=== PATIENT | male | born 1995 | race American Indian/Alaskan Native ===

== ENCOUNTER 2019-08-26 00:42 | Emergency (ER) | payer SELFPAY ==
[2019-08-26 00:59] VITALS: BP 125/79
[2019-08-26] MEDS ORDERED: dexAMETHasone 20 MG/5 ML VIAL IV ONE (01:08)
[2019-08-26] MEDS ORDERED: diphenhydrAMINE 50 MG/ML VIAL IV ONE (01:08)
[2019-08-26] MEDS ORDERED: FAMOTIDINE 20 MG TAB PO ONE (01:08)
--- NOTE | 2019-08-26 01:13 | Emergency Department Report ---
ED Allergic Reaction HPI - General Chief complaint: Allergic Reaction Stated complaint: INSECT BITE/ALLERGIC REACTION Source: patient Mode of arrival: Ambulatory Limitations: No Limitations - History of Present Illness Initial Comments: Patient is a 23-year-old -[place] male with no past medical history except for allergies to bee stings who presents to the ED with complaint of acute onset painful itchy erythematous urticarial posterior neck rash after being bitten by an insect which he suspects may have been a bee about 2 hours ago at work. Patient's chest that he was at work when a bee bit him on the posterior neck and he started feeling pain, itching and burning sensation with mild sweating. Patient denies swollen lips, swollen tongue, swollen throat, dysphagia, dysphonia, swollen face, cough, wheezing, dizziness, syncope, shortness of breath, abdominal pain, nausea, vomiting, diarrhea, fever or chills. MD Complaint: allergic reaction, hives -: Sudden, hour(s) (2) Exposure: insect bite Symptoms: rash, itching, other (erythematous rash on posterior neck, the site of insect bite). denies: facial swelling, lip swelling, difficulty swallowing, difficulty breathing, orolingual swelling, hoarseness, syncopy, dizziness, nausea, vomiting Severity: moderate Treatment Prior to Arrival: none Previous Allergy History: none - Related Data Previous Rx's Medication Instructions Recorded Last Taken Type Famotidine [Pepcid] 20 mg PO Q12H #30 tablet 08/26/19 Unknown Rx Prednisone [predniSONE 10 mg 10 mg PO .TAPER #21 tab.ds.pk 08/26/19 Unknown Rx (6-Day Pack, 21 Tabs)] diphenhydrAMINE [Benadryl CAP] 25 mg PO Q6HR PRN #30 capsule 08/26/19 Unknown Rx Allergies Allergy/AdvReac Type Severity Reaction Status Date / Time bee venom protein (honey bee) Allergy Anaphylaxis Verified 08/26/19 00:58 venom-wasp Allergy Anaphylaxis Verified 08/26/19 00:58 ants Allergy Anaphylaxis Uncoded 08/26/19 00:58 ED Review of Systems ROS: Stated complaint: INSECT BITE/ALLERGIC REACTION Other details as noted in HPI Constitutional: denies: chills, fever Eyes: denies: eye pain, eye discharge, vision change ENT: denies: ear pain, throat pain Respiratory: denies: cough, shortness of breath, wheezing Cardiovascular: denies: chest pain, palpitations Endocrine: no symptoms reported Gastrointestinal: denies: abdominal pain, nausea, diarrhea Genitourinary: denies: urgency, dysuria Musculoskeletal: denies: back pain, joint swelling, arthralgia Skin: rash (Erythematous itchy maculopapular urticarial rash on posterior neck). denies: lesions Neurological: denies: headache, weakness, paresthesias Psychiatric: denies: anxiety, depression Hematological/Lymphatic: denies: easy bleeding, easy bruising ED Past Medical Hx - Past Medical History Previous Medical History?: No - Surgical History Past Surgical History?: No - Social History Smoking Status: Never Smoker Substance Use Type: None - Medications Home Medications: Home Medications Medication Instructions Recorded Confirmed Last Taken Type Famotidine [Pepcid] 20 mg PO Q12H #30 tablet 08/26/19 Unknown Rx Prednisone [predniSONE 10 mg 10 mg PO .TAPER #21 tab.ds.pk 08/26/19 Unknown Rx (6-Day Pack, 21 Tabs)] diphenhydrAMINE [Benadryl CAP] 25 mg PO Q6HR PRN #30 capsule 08/26/19 Unknown Rx ED Physical Exam - General Limitations: No Limitations General appearance: alert, in no apparent distress - Head Head exam: Present: atraumatic, normocephalic, normal inspection - Eye Eye exam: Present: normal appearance, PERRL, EOMI Pupils: Present: normal accommodation - ENT ENT exam: Present: normal exam, normal orophraynx, mucous membranes moist, TM's normal bilaterally, normal external ear exam - Neck Neck exam: Present: normal inspection, full ROM. Absent: tenderness - Respiratory Respiratory exam: Present: normal lung sounds bilaterally. Absent: respiratory distress, wheezes, rales, rhonchi, stridor, chest wall tenderness, accessory muscle use, decreased breath sounds - Cardiovascular Cardiovascular Exam: Present: regular rate, normal rhythm, normal heart sounds. Absent: systolic murmur, diastolic murmur, rubs, gallop - GI/Abdominal GI/Abdominal exam: Present: soft, normal bowel sounds. Absent: tenderness, guarding, hyperactive bowel sounds, hypoactive bowel sounds, organomegaly - Extremities Exam Extremities exam: Present: normal inspection, full ROM, normal capillary refill - Back Exam Back exam: Present: normal inspection, full ROM. Absent: tenderness, CVA tenderness (R), CVA tenderness (L), muscle spasm, paraspinal tenderness, vertebral tenderness - Neurological Exam Neurological exam: Present: alert, oriented X3, CN II-XII intact, normal gait, reflexes normal - Psychiatric Psychiatric exam: Present: normal affect, normal mood - Skin Skin exam: Present: warm, dry, intact, normal color, rash (Erythematous maculopapular urticarial rash on posterior neck from an insect bite), erythema, urticaria ED Course Vital Signs 08/26/19 00:57 Temperature 98.7 F Pulse Rate 88 Respiratory 20 Rate Blood Pressure 125/79 O2 Sat by Pulse 98 Oximetry ED Medical Decision Making - Medical Decision Making This is a 23-year-old -[place] male with no past medical history except for allergies to bee stings who presents to the ED with complaint of acute onset painful itchy erythematous urticarial posterior neck rash after being bitten by an insect which he suspects may have been a bee about 2 hours ago at work. Patient's chest that he was at work when a bee bit him on the posterior neck and he started feeling pain, itching and burning sensation with mild sweating and lightheadedness. In the ED, patient is alert and oriented x3 and is not in any distress with normal vital signs. Physical exam shows mildly swollen erythematous maculopapular urticarial rash on posterior neck. The rest of the physical exam is unremarkable. Patient is hemodynamically stable with oxygen saturation of 98% in room air. Patient was treated for acute allergic reaction with Decadron, Benadryl and Pepcid. Patient was observed in the ED for about 1 hour and on reevaluation, patient is hemodynamically stable. Patient appears sleepy and groggy from medications. Patient was discharged home on medications and advised to follow-up with his primary care physician in 2 to 3 days for reevaluation or return to ED immediately if symptoms get worse. - Differential Diagnosis allergic reaction; anaphylaxis; Urticaria Critical care attestation.: If time is entered above; I have spent that time in minutes in the direct care of this critically ill patient, excluding procedure time. ED Disposition Clinical Impression: Allergic to insect bites and stings, Acute urticaria, Itching with irritation Disposition: -01 TO HOME OR SELFCARE Is pt being admited?: No Does the pt Need Aspirin: No Condition: Stable Instructions: Urticaria (ED), Insect Bite or Sting (ED), Allergies (ED) Additional Instructions: Continue taking medications with food, drink plenty fluids and follow-up with your primary care physician in 3 to 5 days for reevaluation. Return to the ED immediately if symptoms get worse. Prescriptions: diphenhydrAMINE [Benadryl CAP] 25 mg PO Q6HR PRN #30 capsule PRN Reason: Itching Famotidine [Pepcid] 20 mg PO Q12H #30 tablet Prednisone [predniSONE 10 mg (6-Day Pack, 21 Tabs)] 10 mg PO .TAPER #21 tab.ds.pk Referrals: CISCO SHEARER MD [Staff Physician] - 3-5 Days Forms: Work/School Release Form(ED) Time of Disposition: 01:23 Print Language: PALAUAN
== END 2019-08-26 02:30 | disposition home or self-care (01) ==
LOC: ED 00:42
DX: L50.9 Urticaria, unspecified (principal); L29.9 Pruritus, unspecified; Z79.899 Other long term (current) drug therapy; Z91.030 Bee allergy status; Z91.038 Other insect allergy status
CPT/HCPCS: 96374; 96375; 99282; J1100; J1200